=== PATIENT | male | born 1975 | race Hispanic/Latino ===

== ENCOUNTER 2022-04-28 03:52 | Observation (INO) | payer SELFPAY ==
[2022-04-28] MEDS ORDERED: Aspirin Chewable 81 MG TAB ONE (04:16)
[2022-04-28 04:50] LABS: #Basophils 0.1 thou/uL (0.0-0.2); #Eosinphils 0.1 thou/uL (0.0-0.7); #Lymphocytes 2.2 thou/uL (1.20-3.40); #Monocytes 0.7 thou/uL (0.11-0.59); #Neutrophils 6.3 thou/uL (1.40-6.50); %Basophils 0.8 % (0.0-1.0); %Eosinophils 0.6 % (0.0-10.0); %Lymphocytes 24.1 % (21.0-51.0); %Monocytes 7.1 % (0.0-10.0); %Neutrophils 67.4 % (42.0-75.0); Hemoglobin 15.3 g/dL (14.0-18.0); Mean Corpuscular HGB CONC 33.5 g/dL (32.0-36.0); Mean Corpuscular Hemoglobin 32.2 pg (27.0-31.0); Mean Corpuscular Volume 96.1 fL (78.0-98.0); Mean Platelet Volume 7.7 fL (7.4-10.4); Platelet Count 255 thou/uL (130-400); RBC Distribution Width 12.4 % (11.5-14.5); Red Blood Cell (RBC) Count 4.75 mill/uL (4.70-6.10); White Blood Cell (WBC) Count 9.3 thou/uL (4.8-10.8)
[2022-04-28 05:09] LABS: ALT (SGPT) 27 U/L (8-55); AST (SGOT) 28 U/L (5-34); Albumin 4.4 g/dL (3.5-5.0); Alkaline Phosphatase 72 U/L (40-110); Anion Gap 16 mmol/L (10-20); BUN (Urea Nitrogen) 6 mg/dL (8.9-20.6); Bilirubin, Total 1.1 mg/dL (0.2-1.2); Calc. Creatinine Clearance 0 mL/min (70-130); Calcium 9.3 mg/dL (7.8-10.44); Carbon Dioxide 25 mmol/L (22-29); Chloride 103 mmol/L (98-107); Estimated GFR 117; Globulin 3.1 g/dL (2.4-3.5); Glucose 109 mg/dL (70-105); Potassium 3.2 mmol/L (3.5-5.1); Protein, Total 7.5 g/dL (6.0-8.3); Sodium 141 mmol/L (136-145)
[2022-04-28] MEDS ORDERED: Enoxaparin Sodium 60 MG/0.6 ML SYRINGE ONE (06:15)
[2022-04-28] MEDS ORDERED: Ondansetron ODT 4 MG TAB PO PRN (08:02)
[2022-04-28] MEDS ORDERED: Ondansetron PF 4 MG/2 ML Vial IVP PRN (08:02)
[2022-04-28] MEDS ORDERED: Acetaminophen 325 MG TAB PO PRN (08:02)
[2022-04-28] MEDS ORDERED: hydrALAZINE 20 MG/ML VIAL SLOW IVP PRN (08:15)
[2022-04-28] MEDS ORDERED: Potassium Chloride 20 MEQ TAB PO SCH (08:30)
[2022-04-28] MEDS ORDERED: Famotidine 20 MG TAB ONE (08:35)
[2022-04-28 08:42] LABS: Troponin I Less than 0.010 ng/mL (< 0.028)
[2022-04-28] MEDS ORDERED: ADENOSINE 60 MG/20 ML VIAL ONE (08:53)
[2022-04-28] MEDS ORDERED: Famotidine/PF 20 mg/2ml Vial SLOW IVP SCH (09:00)
[2022-04-28] MEDS ORDERED: Famotidine 20 MG TAB PO SCH (09:00)
[2022-04-28] MEDS ORDERED: Dextrose 50% Abboject 50 ML SYRINGE SLOW IVP PRN (09:02)
[2022-04-28] MEDS ORDERED: Dextrose 5% in Water 1,000 ML IV PRN (09:02)
[2022-04-28] MEDS ORDERED: Insulin Regular 300 UNITS/3 ML VIAL SC PRN ×2 (09:02)
[2022-04-28] MEDS ORDERED: Insulin Glargine 30 UNITS/0.3 ML VIAL SC SCH ×4 (09:15→21:00)
[2022-04-28] MEDS ORDERED: hydrALAZINE 20 MG/ML VIAL ONE (14:49)
[2022-04-28] MEDS ORDERED: Insulin Regular 300 UNITS/3 ML VIAL ONE (14:49)
[2022-04-28 15:13] VITALS: BP 166/100; TEMP 99.7
[2022-04-28] MEDS ORDERED: Potassium Chloride 20 MEQ TAB ONE (15:27)
[2022-04-28 15:31] LABS: Troponin I Less than 0.010 ng/mL (< 0.028)
[2022-04-29] MEDS ORDERED: Aspirin Chewable 81 MG TAB PO SCH (09:00)
== END 2022-04-28 17:34 | disposition home or self-care (01) ==
LOC: ERS 03:52 → ERHOLD 06:09
PROVIDERS: ADMIT Student in an Organized Health Care Education/Training Program; ATTEND Physician Assistant
DX: I20.8 Other forms of angina pectoris (principal); I10 Essential (primary) hypertension; E78.5 Hyperlipidemia, unspecified; E11.9 Type 2 diabetes mellitus without complications; F17.210 Nicotine dependence, cigarettes, uncomplicated; M19.011 Primary osteoarthritis, right shoulder; I45.10 Unspecified right bundle-branch block; Z79.4 Long term (current) use of insulin
CPT/HCPCS: 36415; 36416; 71045; 78452; 80053; 83880; 84484; 85025; 93005; 93017; A9500; G0378; J0153; J0360; J1650; J1815

== ENCOUNTER 2022-05-25 19:02 | Emergency (ER) | payer SELFPAY ==
[2022-05-25] MEDS ORDERED: Aspirin Chewable 81 MG TAB ONE (19:44)
[2022-05-25] MEDS ORDERED: Nitroglycerin 0.4 MG TAB 1 EACH ONE (19:44)
[2022-05-25 20:15] LABS: #Lymphocytes 2.7 thou/uL (1.20-3.40); #Monocytes 0.4 thou/uL (0.11-0.59); #Neutrophils 3.1 thou/uL (1.40-6.50); %Basophils 0.8 % (0.0-1.0); %Eosinophils 0.4 % (0.0-10.0); %Lymphocytes 42.8 % (21.0-51.0); %Monocytes 6.6 % (0.0-10.0); %Neutrophils 49.5 % (42.0-75.0); Hemoglobin 15.3 g/dL (14.0-18.0); Mean Corpuscular HGB CONC 32.3 g/dL (32.0-36.0); Mean Corpuscular Hemoglobin 32.3 pg (27.0-31.0); Mean Corpuscular Volume 99.9 fL (78.0-98.0); Mean Platelet Volume 7.4 fL (7.4-10.4); Platelet Count 269 thou/uL (130-400); RBC Distribution Width 12.3 % (11.5-14.5); Red Blood Cell (RBC) Count 4.73 mill/uL (4.70-6.10); White Blood Cell (WBC) Count 6.2 thou/uL (4.8-10.8)
[2022-05-25 20:37] LABS: ALT (SGPT) 16 U/L (8-55); AST (SGOT) 16 U/L (5-34); Albumin 4.5 g/dL (3.5-5.0); Alkaline Phosphatase 63 U/L (40-110); Anion Gap 19 mmol/L (10-20); BUN (Urea Nitrogen) 4 mg/dL (8.9-20.6); Bilirubin, Total 0.3 mg/dL (0.2-1.2); Calc. Creatinine Clearance 0 mL/min (70-130); Carbon Dioxide 22 mmol/L (22-29); Chloride 106 mmol/L (98-107); Estimated GFR 118; Globulin 2.6 g/dL (2.4-3.5); Glucose 176 mg/dL (70-105); Potassium 4.2 mmol/L (3.5-5.1); Protein, Total 7.1 g/dL (6.0-8.3); Sodium 143 mmol/L (136-145)
== END 2022-05-25 21:15 | disposition home or self-care (01) ==
LOC: ERS 19:02
DX: M94.0 Chondrocostal junction syndrome [Tietze] (principal); I10 Essential (primary) hypertension; E78.00 Pure hypercholesterolemia, unspecified; E78.5 Hyperlipidemia, unspecified; E11.9 Type 2 diabetes mellitus without complications; F17.210 Nicotine dependence, cigarettes, uncomplicated
CPT/HCPCS: 36415; 71045; 80053; 84484; 85025; 93005; 94760

== ENCOUNTER 2022-07-27 11:00 | Emergency (ER) | payer SELFPAY ==
[2022-07-27 11:28] LABS: #Basophils 0.1 thou/uL (0.0-0.2); #Lymphocytes 1.3 thou/uL (1.20-3.40); #Monocytes 0.7 thou/uL (0.11-0.59); #Neutrophils 7.8 thou/uL (1.40-6.50); %Basophils 0.5 % (0.0-1.0); %Eosinophils 0.1 % (0.0-10.0); %Lymphocytes 12.7 % (21.0-51.0); %Monocytes 6.9 % (0.0-10.0); %Neutrophils 79.8 % (42.0-75.0); Hemoglobin 16.1 g/dL (14.0-18.0); Mean Corpuscular HGB CONC 33.1 g/dL (32.0-36.0); Mean Corpuscular Hemoglobin 32.3 pg (27.0-31.0); Mean Corpuscular Volume 97.5 fl (78.0-98.0); Mean Platelet Volume 7.7 fL (7.4-10.4); Platelet Count 265 10x3/uL (130-400); RBC Distribution Width 11.6 % (11.5-14.5); White Blood Cell (WBC) Count 9.8 10x3/uL (4.8-10.8)
[2022-07-27 11:54] LABS: ALT (SGPT) 14 U/L (8-55); AST (SGOT) 17 U/L (5-34); Albumin 4.6 g/dL (3.5-5.0); Alkaline Phosphatase 76 U/L (40-110); Anion Gap 17 mmol/L (10-20); BUN (Urea Nitrogen) 7 mg/dL (8.9-20.6); Bilirubin, Total 0.4 mg/dL (0.2-1.2); Calc. Creatinine Clearance 0 mL/min (70-130); Calcium 9.4 mg/dL (7.8-10.44); Carbon Dioxide 22 mmol/L (22-29); Chloride 103 mmol/L (98-107); Estimated GFR 113; Globulin 3.1 g/dL (2.4-3.5); Glucose 226 mg/dL (70-105); Lipase 38 U/L (8-78); Potassium 3.8 mmol/L (3.5-5.1); Protein, Total 7.7 g/dL (6.0-8.3); Sodium 138 mmol/L (136-145)
[2022-07-27] MEDS ORDERED: Nitroglycerin 0.4 MG TAB 1 EACH ONE (12:11)
[2022-07-27] MEDS ORDERED: Ketorolac Tromethamine 30 MG/ML VIAL ONE (13:20)
[2022-07-27] MEDS ORDERED: Mag-Al 1200 mg/1200 mg/30 ML UDCUP ONE (13:36)
[2022-07-27] MEDS ORDERED: Lidocaine 2% Viscous Solution 10 ML, Aluminum & Magnesium Hydroxide 30 ML SSW SCH (15:00)
== END 2022-07-27 15:42 | disposition home or self-care (01) ==
LOC: ERS 11:00
DX: R07.89 Other chest pain (principal); E11.9 Type 2 diabetes mellitus without complications; E78.5 Hyperlipidemia, unspecified; E78.00 Pure hypercholesterolemia, unspecified
CPT/HCPCS: 36415; 71045; 80053; 83690; 84484; 85025; 85379; 93005; 96374; J1885

== ENCOUNTER 2022-10-07 14:56 | Outpatient (CLI) | payer OTHER, SELFPAY ==
[2022-10-07 16:23] LABS: #Basophils 0.1 10x3/uL (0.0-0.2); #Eosinphils 0.1 10x3/uL (0.0-0.5); #Monocytes 0.7 10x3/uL (0.0-1.1); #Neutrophils 4.6 10x3/uL (1.5-8.4); %Basophils 0.8 % (0.0-2.0); %Lymphocytes 29.1 % (18.0-47.0); %Monocytes 8.8 % (0.0-10.0); %Neutrophils 59.9 % (40.0-75.0); Hemoglobin 15.4 g/dL (13.5-17.5); Mean Corpuscular HGB CONC 34.6 g/dL (32.0-36.0); Mean Corpuscular Hemoglobin 32.4 pg (27.0-33.0); Mean Corpuscular Volume 93.5 fl (81.2-95.1); Mean Platelet Volume 9.9 fl (7.4-10.4); Platelet Count 279 10x3/uL (150-450); Red Blood Cell (RBC) Count 4.76 10x6/uL (4.32-5.72); White Blood Cell (WBC) Count 7.7 10x3/uL (3.5-10.5)
== END 2022-10-07 14:57 | disposition home or self-care (01) ==
LOC: LABBT 14:56
PROVIDERS: ATTEND Orthopaedic Surgery Hand Surgery
DX: Z01.812 Encounter for preprocedural laboratory examination (principal); M72.0 Palmar fascial fibromatosis [Dupuytren]
CPT/HCPCS: 85025

== ENCOUNTER 2022-10-13 05:39 | Day surgery (SDC) | payer OTHER ==
[2022-10-09 12:27] VITALS: BMI 23.1
[2022-10-13] MEDS ORDERED: Bacitracin Zinc Ointment 30 gm TUBE ONE (06:13)
[2022-10-13] MEDS ORDERED: Bupivacaine PF 0.5% 30 ML VIAL ONE (06:13)
[2022-10-13] MEDS ORDERED: CEFAZOLIN 2 GM VIAL ONE (06:57)
[2022-10-13] MEDS ORDERED: Sodium Chloride 0.9% 100 ML ONE (06:57)
[2022-10-13] MEDS ORDERED: Propofol 500 MG/50 ML VIAL ONE (06:58)
[2022-10-13] MEDS ORDERED: fentaNYL PF 100 MCG/2 ML SYRINGE ONE (06:58)
[2022-10-13 07:13] LABS: Anion Gap 14 mmol/L (10-20); BUN (Urea Nitrogen) 14 mg/dL (8.9-20.6); Calc. Creatinine Clearance 119 mL/min (70-130); Calcium 9.1 mg/dL (7.8-10.44); Carbon Dioxide 22 mmol/L (22-29); Chloride 107 mmol/L (98-107); Estimated GFR 117; Glucose 109 mg/dL (70-105); Potassium 3.6 mmol/L (3.5-5.1); Sodium 139 mmol/L (136-145)
[2022-10-13] MEDS ORDERED: Lidocaine 1% PF 5 ML VIAL ONE (07:14)
[2022-10-13] MEDS ORDERED: Collagenase Clostridium Hist. 0.9 MG VIAL IJ SCH (07:15)
[2022-10-13] MEDS ORDERED: Collagenase Clostridium Hist. 0.9 MG VIAL ONE (07:15)
[2022-10-13] MEDS ORDERED: Ketorolac Tromethamine 30 MG/ML VIAL ONE (08:10)
== END 2022-10-13 09:17 | disposition home or self-care (01) ==
LOC: SDC 05:39
PROVIDERS: ATTEND Orthopaedic Surgery Hand Surgery
PROC: 3E013TZ Introduction of Destructive Agent into Subcutaneous Tissue, Percutaneous Approach (ICD-10-PCS; principal; 2022-10-13)
DX: M72.0 Palmar fascial fibromatosis [Dupuytren] (principal); E11.9 Type 2 diabetes mellitus without complications; I10 Essential (primary) hypertension; F17.200 Nicotine dependence, unspecified, uncomplicated; G56.03 Carpal tunnel syndrome, bilateral upper limbs; Z79.4 Long term (current) use of insulin; Z79.899 Other long term (current) drug therapy
CPT/HCPCS: 36416; 80048; J0775; J1885; J2704; J3490; S0020

== ENCOUNTER 2023-03-26 11:34 | Day surgery (SDC) | payer OTHER ==
[2023-03-24 15:52] VITALS: BMI 22.6
[2023-03-26 12:53] LABS: #Monocytes 0.7 thou/uL (0.11-0.59); #Neutrophils 5.8 thou/uL (1.40-6.50); %Basophils 0.5 % (0.0-1.0); %Eosinophils 0.5 % (0.0-10.0); %Lymphocytes 21.2 % (21.0-51.0); %Monocytes 8.8 % (0.0-10.0); %Neutrophils 68.6 % (42.0-75.0); Hematocrit 47.1 % (42.0-52.0); Hemoglobin 15.7 g/dL (14.0-18.0); Mean Corpuscular HGB CONC 33.3 g/dL (32.0-36.0); Mean Corpuscular Hemoglobin 31.6 pg (27.0-31.0); Mean Corpuscular Volume 94.8 fl (78.0-98.0); Mean Platelet Volume 9.5 fL (7.4-10.4); Platelet Count 262 10x3/uL (130-400); RBC Distribution Width 14.2 % (11.5-14.5); Red Blood Cell (RBC) Count 4.97 mill/uL (4.70-6.10); White Blood Cell (WBC) Count 8.4 10x3/uL (4.8-10.8)
[2023-03-26] MEDS ORDERED: Bacitracin Zinc Ointment 30 gm TUBE ONE (12:56)
[2023-03-26] MEDS ORDERED: Bupivacaine PF 0.5% 30 ML VIAL ONE (12:56)
[2023-03-26] MEDS ORDERED: Vancomycin 1 GM VIAL ONE (12:56)
[2023-03-26] MEDS ORDERED: Betamet Acet/Betamet Na Ph 30 MG/5 ML VIAL ONE (12:56)
[2023-03-26] MEDS ORDERED: fentaNYL PF 100 MCG/2 ML SYRINGE ONE ×2 (13:01→16:51)
[2023-03-26] MEDS ORDERED: CEFAZOLIN 2 GM VIAL ONE (13:03)
[2023-03-26] MEDS ORDERED: Sodium Chloride 0.9% 100 ML ONE (13:03)
[2023-03-26 13:12] LABS: Anion Gap 13 mmol/L (10-20); BUN (Urea Nitrogen) 7 mg/dL (8.9-20.6); Calc. Creatinine Clearance 127 mL/min (70-130); Calcium 9.5 mg/dL (7.8-10.44); Carbon Dioxide 24 mmol/L (22-29); Chloride 107 mmol/L (98-107); Estimated GFR 120; Glucose 81 mg/dL (70-105); Potassium 3.9 mmol/L (3.5-5.1); Sodium 140 mmol/L (136-145)
[2023-03-26] MEDS ORDERED: PROPOFOL 200 MG/20 ML VIAL ONE (13:23)
[2023-03-26] MEDS ORDERED: Ketorolac Tromethamine 30 MG/ML VIAL ONE (13:23)
[2023-03-26] MEDS ORDERED: ePHEDrine Sulfate 50 MG/10 ML VIAL ONE (13:23)
[2023-03-26] MEDS ORDERED: Lidocaine 1% PF 5 ML VIAL ONE (13:23)
[2023-03-26] MEDS ORDERED: PHENYLEPHRINE-NS 100 MCG/ML 10 ML SYRINGE ONE (13:23)
[2023-03-26] MEDS ORDERED: Ondansetron PF 4 MG/2 ML Vial ONE (13:23)
[2023-03-26] MEDS ORDERED: Dexamethasone 20 MG/5 ML VIAL ONE (13:23)
[2023-03-26] MEDS ORDERED: HYDROmorphone 0.5 MG/0.5 ML SYRINGE ONE (15:58)
[2023-03-26] MEDS ORDERED: HYDROcodone/Acetaminophen 5/325 mg Tablet ONE (17:41)
== END 2023-03-26 18:30 | disposition home or self-care (01) ==
LOC: SDC 11:34
PROVIDERS: ATTEND Orthopaedic Surgery Hand Surgery
PROC: 0JNJ0ZZ Release Right Hand Subcutaneous Tissue and Fascia, Open Approach (ICD-10-PCS; principal; 2023-03-26)
PROC: 01N50ZZ Release Median Nerve, Open Approach (ICD-10-PCS; principal; 2023-03-26)
DX: M72.0 Palmar fascial fibromatosis [Dupuytren] (principal); G56.23 Lesion of ulnar nerve, bilateral upper limbs; G56.01 Carpal tunnel syndrome, right upper limb; I10 Essential (primary) hypertension; E11.9 Type 2 diabetes mellitus without complications; F17.200 Nicotine dependence, unspecified, uncomplicated
CPT/HCPCS: 36416; 80048; 85025; 88304; 93005; 93010; J0702; J1100; J1170; J1885; J2405; J2704; J3370; J3490; S0020

== ENCOUNTER 2023-04-09 22:28 | Emergency (ER) | payer OTHER ==
[2023-04-09] MEDS ORDERED: Ketorolac Tromethamine 30 MG/ML VIAL ONE (22:43)
== END 2023-04-09 23:52 | disposition home or self-care (01) ==
LOC: ERS 22:28
DX: M79.641 Pain in right hand (principal); S61.411D Laceration without foreign body of right hand, subsequent encounter; E11.9 Type 2 diabetes mellitus without complications; I10 Essential (primary) hypertension; X58.XXXD Exposure to other specified factors, subsequent encounter
CPT/HCPCS: 96372; 99283; J1885

== ENCOUNTER 2023-07-18 20:54 | Emergency (ER) | payer OTHER ==
[2023-07-18 21:53] LABS: #Eosinphils 0.1 thou/uL (0.0-0.7); #Monocytes 0.4 thou/uL (0.11-0.59); #Neutrophils 3.2 thou/uL (1.40-6.50); %Basophils 0.5 % (0.0-1.0); %Monocytes 6.6 % (0.0-10.0); %Neutrophils 50.6 % (42.0-75.0); Hematocrit 46.4 % (42.0-52.0); Mean Corpuscular HGB CONC 34.5 g/dL (32.0-36.0); Mean Corpuscular Hemoglobin 32.3 pg (27.0-31.0); Mean Corpuscular Volume 93.5 fl (78.0-98.0); Mean Platelet Volume 9.8 fL (7.4-10.4); Platelet Count 257 10x3/uL (130-400); RBC Distribution Width 13.2 % (11.5-14.5); Red Blood Cell (RBC) Count 4.96 mill/uL (4.70-6.10); White Blood Cell (WBC) Count 6.4 10x3/uL (4.8-10.8)
[2023-07-18 21:55] LABS: Base Excess -7.1 mEq/L (-2.0 to +3.0); Calcium, Ionized (venous) 0.97 mmol/L (1.16-1.32); Chloride (VBG) 106 mmol/L (98-106); Hematocrit-VBG 50 % (42.0-52.0); Hemoglobin (Hb) 17.1 g/dL (13.1-17.2); Sodium 141 mmol/L (133-146); pH (venous) 7.413 (7.32-7.43)
[2023-07-18 22:18] LABS: ALT (SGPT) 15 U/L (8-55); AST (SGOT) 13 U/L (5-34); Albumin 4.5 g/dL (3.5-5.0); Alkaline Phosphatase 85 U/L (40-110); Anion Gap 17 mmol/L (10-20); BUN (Urea Nitrogen) 7 mg/dL (8.9-20.6); Bilirubin, Total 0.2 mg/dL (0.2-1.2); Calc. Creatinine Clearance 0 mL/min (70-130); Calcium 8.4 mg/dL (7.8-10.44); Carbon Dioxide 18 mmol/L (22-29); Chloride 107 mmol/L (98-107); Estimated GFR 111; Globulin 2.8 g/dL (2.4-3.5); Glucose 367 mg/dL (70-105); Potassium 3.6 mmol/L (3.5-5.1); Protein, Total 7.3 g/dL (6.0-8.3); Sodium 138 mmol/L (136-145)
== END 2023-07-18 23:27 ==
LOC: EEVIPCON 20:54 → ERS 20:54
DX: E11.65 Type 2 diabetes mellitus with hyperglycemia (principal); E78.00 Pure hypercholesterolemia, unspecified; I10 Essential (primary) hypertension; Z79.4 Long term (current) use of insulin; Z79.899 Other long term (current) drug therapy
CPT/HCPCS: 36415; 80053; 82805; 85025; 96360